=== PATIENT | female | born 1945 | race Hispanic/Latino ===

== ENCOUNTER 2018-12-11 06:50 | Observation (INO) | payer MEDICARE ==
--- NOTE | 2018-12-09 14:11 | Diagnostic Imaging Report ---
EXAMINATION: CHEST 2 VIEWS INDICATION: Pre-operative COMPARISON: None FINDINGS: LINES/TUBES:None LUNGS:The lungs are well-inflated. No focal consolidation or pulmonary edema. PLEURA:No pleural effusion or pneumothorax. MEDIASTINUM:The cardiomediastinal silhouette appears normal in size and shape. BONES/SOFT TISSUES:No acute osseous injury. ABDOMEN:No free air under the diaphragm. IMPRESSION: No focal pneumonia or pulmonary edema. Signed by: Rubén Palacios MD on 12/09/2018 2:08 PM
[2018-12-09 14:18] LABS: BASOPHILS % 0.5 % (0.0-1.0); EOSINOPHILS # (AUTO) 0.2 (0.0-0.4); EOSINOPHILS % 3.5 % (0.0-6.0); HEMATOCRIT 33.6 % (34.2-44.1); HEMOGLOBIN 10.8 g/dL (12.0-16.0); LYMPHOCYTES # (AUTO) 1.7 (1.0-3.2); LYMPHOCYTES % 27.7 % (18.0-39.1); MEAN CORPUSCULAR HEMOGLOBIN 29.7 pg (28-32); MEAN CORPUSCULAR HGB CONC 32.1 g/dL (31-35); MEAN CORPUSCULAR VOLUME 92.3 fL (81-99); MONOCYTES # (AUTO) 0.4 (0.2-0.8); MONOCYTES % 6.4 % (4.4-11.3); NEUTROPHILS # (AUTO) 3.8 (2.1-6.9); NEUTROPHILS % 61.6 % (38.7-80.0); PLATELET COUNT 355 x10e3/uL (140-360); RED BLOOD COUNT 3.64 x10e6/uL (3.6-5.1); RED CELL DISTRIBUTION WIDTH 14.4 % (11.7-14.4)
[2018-12-09 14:32] LABS: INR 0.89; PROTHROMBIN TIME 12.5 seconds (11.9-14.5)
[2018-12-09 14:33] LABS: PARTIAL THROMBOPLASTIN TIME 28.5 seconds (23.8-35.5)
[2018-12-09 14:37] LABS: CALCIUM 9.1 mg/dL (8.4-10.2)
[~2018-12-11] VITALS: Ht 157.5 cm; Wt 71.2 kg
[~2018-12-11 06:50] MED LIST: AMLODIPINE BESYL5 MG PO; DICLOFENAC PO; LOSARTAN POTAS100 MG PO; METFORMIN HCL500 MG PO; MINOCYCLINE HCL50 MG PO; OMEPRAZOLE40 MG PO; PIOGLITAZONE HC45 MG PO
--- OUTSIDE RECORDS SUMMARY | 2018-12-11 07:00 | XMS REPORT ---
[facility] Address Unknown Phone Unavailable Care Team Providers Care Job Counselor Name Role Phone JUAN SELF PP Unavailable JOYCE HESS Unavailable Unavailable Eleazar SELF Unavailable Unavailable Problems This patient has no known problems. Allergies, Adverse Reactions, Alerts This patient has no known allergies or adverse reactions. Medications This patient has no known medications. Encounters Start Date/Time End Date/Time Encounter Type Admission Type Attending Clinicians [facility] Facility Care Department Encounter ID 2017-04-30 15:24:00 2017-04-30 15:24:00 Outpatient [facility] [id number] 2017-04-30 11:53:00 2017-04-30 11:53:00 Outpatient [facility] [id number] Results Test Description Test Time Test Comments Text Results Atomic Results Result Comments CHEST 2 VIEWS 2018-12-09 14:07:00 [place] [id number] Patient Name: CANDI BARRY MR #: [id number] : 1945 Age/Sex: 73/F Req #: [id number] Adm Physician: Ordered by: JOYCE HESS MD Report #: [id number] Location: OR Room/Bed: Procedure: [id number] DX/CHEST 2 VIEWS Exam Date: 10/29/19 Exam Time: 1340 REPORT STATUS: Signed EXAMINATION: CHEST 2 VIEWS INDICATION: Pre-operative COMPARISON: None FINDINGS: LINES/TUBES:None LUNGS:The lungs are well-inflated. No focal consolidation or pulmonary edema. PLEURA:No pleural effusion or pneumothorax. MEDIASTINUM:The cardiomediastinal silhouette appears normal in size and shape. BONES/SOFT TISSUES:No acute osseous injury. ABDOMEN:No free air under the diaphragm. IMPRESSION: No focal pneumonia or pulmonary edema. Signed by: Ivy Lew MD on 12/09/2018 2:08 PM Dictated By: IVY LEW MD 07 Transcribed By: NAOMI Medeiros on 12/09/181407 COPY TO: JOYCE HESS MD US Breast Complete Right 2018-06-30 12:35:44 Patient: CANDI BARRY Date/Time06/30/2018 12:03 CDTReason for [id number] R 16- BILATERAL DIAGNOSTIC MAMMOGRAM WITH CAD- LEFT BREAST ULTRASOUND COMPLETE- RIGHT BREAST ULTRASOUND COMPLETEHISTORY: 73 year-old female who presents for annual exam. History of high risk right breast biopsy 2015.COMPARISON: Multiple mammograms dating as back as 02/09/2014 with most recent prior exam dated 06/20/2017.MAMMOGRAM:CC , ML AND MLO views of both breasts were obtained and interpreted. Right exaggerated CC view.There are scattered areas of fibroglandular density.No evidence of new dominant mass, asymmetry architectural distortion or suspicious microcalcifications is seen.ULTRASOUND:Technique: Complete survey of the left breast with survey of the left axilla obtained. Complete survey of the right breast with survey of the right axilla obtained. Real-time images of breasts performed by the radiologist as well.No evidence of focal mass, cyst or area of disturbed echotexture. Prominent echogenic band of benign parenchymal tissue at the 12-2:00 axis of the left breast. No axillary lymphadenopathy.PHYSICAL EXAM:Palpable ridge of tissue at the left breast 12:00 - 2:00 axis is benign on targeted ultrasound.IMPRESSION:No mammographic or sonographic evidence of malignancy.RECOMMENDATIONS: FOLLOW-UP MAMMOGRAM AND BILATERAL BREAST ULTRASOUND IN ONE YEAR IN THE ABSENCE OF CLINICAL FINDINGS.BI-RADS CATEGORY: 2: Benign Final Dictated by: MD Franz Eniola FDictated DT/TM: 06/30/2018 12:31 pmSigned by: MD Franz Eniola FSigned (Electronic Signature): 06/30/2018 12:35 pm US Breast Complete Left 2018-06-30 12:35:44 Patient: CANDI BARRY Date/Time06/30/2018 12:03 CDTReason for [id number] R 16- BILATERAL DIAGNOSTIC MAMMOGRAM WITH CAD- LEFT BREAST ULTRASOUND COMPLETE- RIGHT BREAST ULTRASOUND COMPLETEHISTORY: 73 year-old female who presents for annual exam. History of high risk right breast biopsy 2014.COMPARISON: Multiple mammograms dating as back as 02/09/2014 with most recent prior exam dated 06/20/2017.MAMMOGRAM:CC , ML AND MLO views of both breasts were obtained and interpreted. Right exaggerated CC view.There are scattered areas of fibroglandular density.No evidence of new dominant mass, asymmetry architectural distortion or suspicious microcalcifications is seen.ULTRASOUND:Technique: Complete survey of the left breast with survey of the left axilla obtained. Complete survey of the right breast with survey of the right axilla obtained. Real-time images of breasts performed by the radiologist as well.No evidence of focal mass, cyst or area of disturbed echotexture. Prominent echogenic band of benign parenchymal tissue at the 12-2:00 axis of the left breast. No axillary lymphadenopathy.PHYSICAL EXAM:Palpable ridge of tissue at the left breast 12:00 - 2:00 axis is benign on targeted ultrasound.IMPRESSION:No mammographic or sonographic evidence of malignancy.RECOMMENDATIONS: FOLLOW-UP MAMMOGRAM AND BILATERAL BREAST ULTRASOUND IN ONE YEAR IN THE ABSENCE OF CLINICAL FINDINGS.BI-RADS CATEGORY: 2: Benign Final Dictated by: MD Franz Eniola FDictated DT/TM: 06/30/2018 12:31 pmSigned by: MD Franz Eniola FSigned (Electronic Signature): 06/30/2018 12:35 pm [facility] Mammo Digital Diagnostic Bilat 2018-06-30 12:35:44 Patient: CANDI BARRY Date/Time06/30/2018 11:18 CDTReason for [id number] R 16- BILATERAL DIAGNOSTIC MAMMOGRAM WITH CAD- LEFT BREAST ULTRASOUND COMPLETE- RIGHT BREAST ULTRASOUND COMPLETEHISTORY: 73 year-old female who presents for annual exam. History of high risk right breast biopsy 2014.COMPARISON: Multiple mammograms dating as back as 02/09/2014 with most recent prior exam dated 06/20/2017.MAMMOGRAM:CC , ML AND MLO views of both breasts were obtained and interpreted. Right exaggerated CC view.There are scattered areas of fibroglandular density.No evidence of new dominant mass, asymmetry architectural distortion or suspicious microcalcifications is seen.ULTRASOUND:Technique: Complete survey of the left breast with survey of the left axilla obtained. Complete survey of the right breast with survey of the right axilla obtained. Real-time images of breasts performed by the radiologist as well.No evidence of focal mass, cyst or area of disturbed echotexture. Prominent echogenic band of benign parenchymal tissue at the 12-2:00 axis of the left breast. No axillary lymphadenopathy.PHYSICAL EXAM:Palpable ridge of tissue at the left breast 12:00 - 2:00 axis is benign on targeted ultrasound.IMPRESSION:No mammographic or sonographic evidence of malignancy.RECOMMENDATIONS: FOLLOW-UP MAMMOGRAM AND BILATERAL BREAST ULTRASOUND IN ONE YEAR IN THE ABSENCE OF CLINICAL FINDINGS.BI-RADS CATEGORY: 2: Benign Final Dictated by: MD Franz Eniola FDictated DT/TM: 06/30/2018 12:31 pmSigned by: MD Franz Eniola FSigned (Electronic Signature): 06/30/2018 12:35 pm [facility] Mammo Digital Diagnostic Bilat 2017-06-20 11:35:11 Patient: CANDI BARRY Date/Time06/20/2017 10:35 CDTReason for [id number] Mammo Digital Diagnostic ShgpnZ76.Dictation Location: [id number] Information: 72-year-old female with history of high risk a right breast biopsy in 2014, presents for annual evaluation.Technique: Bilateral digital mammogram with computer assisted diagnosis. Bilateral CC, MLO and ML views were obtained.Comparison: Prior mammograms dating back to 06/01/2015Findings:The breasts are heterogeneously dense, which may obscure small masses. A scar marker was placed on the upper inner right breast, overlying stable postsurgical changes. There are no suspicious masses or microcalcifications.IMPRESSION:No mammographic evidence of malignancy. However, the breasts are dense, which may obscure small masses and screening bilateral breast ultrasound should be considered.ACR BI-RADS CATEGORY: 2- BENIGNRECOMMENDATION: FOLLOW UP MAMMOGRAM IN ONE YEAR Final Dictated by: MD Wiley, Katy ADictated DT/TM: 06/20/2017 11:29 amSigned by: MD Jama Daisha ASignsandy (Electronic Signature): 06/20/2017 11:35 am Comprehensive Metabolic Panel 2016-10-18 18:25:00 Sodium (test code=NA) 141 mmol/L 135-145 Potassium (test code=K) 4.9 mmol/L 3.5-5.1 Chloride (test code=CL) 102 mmol/L 98-105 Carbon Dioxide (test code=CO2) 29 mmol/L 22-29 Glucose (test code=GLU) 151 mg/dL 70-115 Blood Urea Nitrogen (test code=BUN) 16 mg/dL 8-23 Creatinine (test code=CREAT) 0.7 mg/dL 0.5-0.9 Calcium (test code=CA) 9.5 mg/dL 8.3-10.5 Prot Total (test code=TP) 7.1 g/dL 6.4-8.3 Albumin (test code=ALB) 4.2 g/dL 3.5-5.2 A/G Ratio (test code=AGRATIO) 1.4 Ratio Globulin (test code=GLOB) 2.9 2.9-3.1 Bili Total (test code=TBIL) 0.6 mg/dL 0.1-0.9 Alk Phos (test code=APHOS) 143 U/L 35-104 AST (test code=AST) 16 U/L 1-32 ALT (test code=ALT) 24 U/L 1-33 BUN/Creatinine Ratio (test code=BCRATIO) 22.9 Anion Gap (test code=AGAP) 10 mmol/L 7-16 Estimated GFR (test code=GFR) >60 mL/min/1.73m2 eGFR (estimated Glomerular Filtration Rate) is an estimated value,calculated from the patient's serum creatinine using the MDRD equation.It is NOT the patient's actual GFR. The eGFR provides a more clinicallyuseful measure of kidney disease than serum creatinine alone.This calculation takes sex and race into account, if the informationis provided. If the race is not provided, and the patient isAfrican-Brazilian, multiply by 1.212. If sex is not provided, and thepatient is female, multiply by 0.742. Results for patients <18 years ofage have not been validated by the MDRD study and should be interpretedwith caution.eGFR Result Interpretation:eGFR > or=60 is in the Normal RangeeGFR < 60 may mean kidney diseaseeGFR < 15 may mean kidney failureRanges recommended by the National Kidney Foundat ion,http://nkdep.nih.gov
[2018-12-11] MEDS ORDERED: LIDOCAINE HCL (LTA) 4 ML SOLN ONE (07:09)
[2018-12-11] MEDS ORDERED: ACETAMINOPHEN 1000 MG/100 ML 100 ML IV ONE (07:09)
[2018-12-11] MEDS ORDERED: IBUPROFEN 800MG/ 250ML 250 ML IV ONE (07:09)
[2018-12-11] MEDS ORDERED: BACITRACIN 50,000 UNIT VIAL ONE (07:37)
[2018-12-11] MEDS ORDERED: THROMBIN FOR SOLN 5,000 UNIT VIAL ONE (07:37)
[2018-12-11] MEDS ORDERED: BUPIVACAINE 0.5%/EPI 30 ML SDV INJ ONE (07:37)
[2018-12-11] MEDS ORDERED: CEFAZOLIN SOD 1 GM/NS 50ML 100 ML IV ONE (07:58)
[2018-12-11] MEDS ORDERED: ZOLPIDEM TARTRATE 5 MG TAB PO PRN (10:45)
[2018-12-11] MEDS ORDERED: MAGNESIUM/ALUMINUM/SIMETHICONE 30 ML UDC PO PRN (10:45)
[2018-12-11] MEDS ORDERED: PROMETHAZINE HCL (IM) 25 MG/ML VIAL IM PRN (10:45)
[2018-12-11] MEDS ORDERED: OXYCODONE/ACETAMINOPHEN 5-325 1 EACH TABLET PO PRN (10:45)
[2018-12-11] MEDS ORDERED: MORPHINE SULFATE 5 MG/ML VIAL IM PRN (10:45)
[2018-12-11] MEDS ORDERED: HYDROMORPHONE 2MG/ML 2 MG/ML ML IV PRN (10:45)
[2018-12-11] MEDS ORDERED: ACETAMINOPHEN 325 MG TAB PO PRN (10:45)
[2018-12-11] MEDS ORDERED: CEPACOL SORE THROAT LOZENGES PO PRN (10:45)
[2018-12-11] MEDS ORDERED: CARISOPRODOL 350 MG TAB PO PRN (10:45)
[2018-12-11 11:45] VITALS: BP 128/69
--- NOTE | 2018-12-11 12:00 | NUR ---
Received patient from [facility], s/p L4/L5 laminectomy, PMH significant for HTN, DM, HLD, c/o pains to incision site, medicated as per orders. VSS, afebrile, no deficits, no c/o N/V, no chills, a/ox3, able to make needs known, OOB to bathroom with assistance, call light within reach, will monitor.
[2018-12-11 12:04] VITALS: BP 128/69
[2018-12-11] MEDS: LACTATED RINGER'S 1,000 ML IV SCH ×2 (12:32→22:02)
[2018-12-11] MEDS: ONDANSETRON HCL INJ 2MG/ML 2ML 2 MG/ML VIAL IV PRN ×3 (12:33→22:54)
[2018-12-11] MEDS: CEFAZOLIN SOD 1 GM/NS 50ML 50 ML IV SCH ×2 (14:00→20:56)
[2018-12-11 16:46] VITALS: BP 141/63
--- NOTE | 2018-12-11 16:48 | Operative Report ---
DATE OF PROCEDURE: 12/11/2018 SURGEON: José Miller MD PREOPERATIVE DIAGNOSIS: L4-L5 spinal stenosis with neurogenic claudication, M48.062. POSTOPERATIVE DIAGNOSIS: L4-L5 spinal stenosis with neurogenic claudication, M48.062. PROCEDURES: 1. L4 bilateral decompressive laminectomy and L4-L5 bilateral medial facetectomies, 41229. 2. L5 bilateral partial decompressive laminectomy, 19146. ANESTHESIA: General. INDICATIONS: The patient is a 73-year-old woman, who presents with severe small L4-L5 spinal stenosis and was taken to the operating room for bilateral decompressive laminectomy. PROCEDURE IN DETAIL: After induction of general anesthesia, the patient was placed on the operating table in prone position over Sidney frame. Lumbar region was prepped and draped in sterile fashion. A preoperative x-ray was obtained. A small midline incision was created over the lumbar region. The lumbar fascia was opened along the midline and a subperiosteal dissection was carried out to expose the underlying laminae and x-ray was obtained with a probe under the L5 lamina. One segment was counted above the segments to locate the L4-L5 segment. The portions of the spinous processes of L4 and L5 were resected. The medial aspects of the facet joints were exposed. Retraction was maintained with expandable Aesculap speculum retractor. The operating microscope was brought in. A high-speed drill equipped with a 5 mm venkat bur was used to drill the inferior aspect of lamina of L4 and the superior aspect of the lamina of L5 and the medial aspect of the L4-L5 facet joints bilaterally. The markedly hypertrophic ligamentum flavum was resected. The dural sac and the L5 traversing nerve roots were fully exposed and decompressed. Meticulous hemostasis was secured. The underlying disk was examined and found to be to just have a mild chronic disk bulge without any significant compression of the dural sac or the nerve roots. The diskectomy was not performed. The wound was copiously irrigated with bacitracin solution. Meticulous hemostasis was secured. The retractor was removed. The dura was covered with a smaller Gel-Foam. The lumbar fascia was closed with 0 Vicryl sutures. Subcutaneous layer was closed with 2-0 Vicryl sutures. The skin was closed with 3-0 Monocryl sutures in subcuticular fashion. Steri-Strips and dressing were applied. The patient was awakened, extubated, and taken to postanesthesia care unit in stable condition. No intraoperative complications were encountered. Estimated blood loss was 20 mL. José Miller MD PP/LINDA /[id number]
[2018-12-11] MEDS ORDERED: SEVOFLURANE INHAL SOLN 250 ML PEN BTL ONE (18:51)
[2018-12-11] MEDS ORDERED: MIDAZOLAM HCL 2 MG/2 ML VIAL ONE (18:51)
[2018-12-11] MEDS ORDERED: PROPOFOL IV EMULSION 10 MG/ML 20 ML VIAL ONE (18:51)
[2018-12-11] MEDS ORDERED: FENTANYL CITRATE/PF 100MCG/2 ML INJ ONE (18:51)
[2018-12-11] MEDS ORDERED: DEXAMETHASONE SOD PHOS INJ 4 MG/ML VIAL ONE (18:51)
[2018-12-11] MEDS ORDERED: LIDOCAINE HCL 2% JELLY 5 ML TUBE ONE (18:51)
[2018-12-11] MEDS ORDERED: ONDANSETRON HCL INJ 2MG/ML 2ML 2 MG/ML VIAL ONE (18:51)
[2018-12-11] MEDS ORDERED: LIDOCAINE HCL 2% LOCAL INJ 5 ML SDV VIAL INJ ONE (18:51)
--- NOTE | 2018-12-11 18:59 | NUR ---
Patient a/ox3, OOB to bathroom with assistance, pains well managed, voiding, c/o nausea and medicated with zofran, call light within reach, will monitor.
--- NOTE | 2018-12-11 19:00 | NUR ---
RECEIVED PATIENT IN BEDSIDE SHIFT REPORT. PATIENT RESTING IN BED AT THIS TIME. PAIN MANAGEABLE. 04/20. NO S&S OF DISTRESS NOTED. BEATRIZ HOSE ON AND SCDS ACTIVE. BED LOCKED IN LOWEST POSITION, SIDE RAILS UPX2, CALL LIGHT IN REACH.
[2018-12-11 20:00] VITALS: BP 159/82
[2018-12-11 22:37] VITALS: BP 159/82
[2018-12-12] VITALS: BP 139/76
[2018-12-12] MEDS: OXYCODONE/ACETAMINOPHEN 5-325 1 EACH TABLET PO PRN ×2 (00:30→06:10)
[2018-12-12 04:00] VITALS: BP 135/66
[2018-12-12] MEDS: CEFAZOLIN SOD 1 GM/NS 50ML 50 ML IV SCH (06:33)
--- NOTE | 2018-12-12 06:50 | NUR ---
Received patient lying in bed with eyes open. Respiration even and unlabored without SOB. Call light in reach.
[2018-12-12 07:55] VITALS: BP 130/66
[2018-12-12] MEDS ORDERED: METFORMIN HCL 500 MG TAB PO SCH (09:00)
[2018-12-12] MEDS ORDERED: LOSARTAN POTASSIUM 100 MG TAB PO SCH (09:00)
[2018-12-12] MEDS ORDERED: PIOGLITAZONE HCL 15 MG TAB PO SCH (09:00)
[2018-12-12] MEDS ORDERED: AMLODIPINE BESYLATE 5 MG TAB PO SCH (09:00)
[2018-12-12] MEDS ORDERED: PIOGLITAZONE HCL 45 MG TAB PO SCH (09:00)
[2018-12-12] MEDS ORDERED: MINOCYCLINE HCL 50 MG CAP PO SCH (09:00)
[2018-12-12] MEDS ORDERED: PANTOPRAZOLE SOD 40 MG TABEC PO SCH (09:00)
[2018-12-12 09:23] VITALS: BP 130/66
[2018-12-12] MEDS ORDERED: NORCO 7.5-3251 EACH PO (09:42)
--- NOTE | 2018-12-12 10:02 | NUR ---
Discontinue IV to left AC, catheter tip intact, no bleeding noted.
--- NOTE | 2018-12-12 10:37 | NUR ---
Patient is to D/C to home as ordered. Transported via wheelchair to private vehicle. All personal belongings are with the family member.
== END 2018-12-12 10:37 | disposition home or self-care (01) ==
LOC: OR 06:50 → PACU V 10:41 → MED/SURG 11:31
PROVIDERS: ADMIT Neurological Surgery; ATTEND Neurological Surgery
DX: M48.062 Spinal stenosis, lumbar region with neurogenic claudication (principal); I10 Essential (primary) hypertension; E78.5 Hyperlipidemia, unspecified; G89.29 Other chronic pain; E11.9 Type 2 diabetes mellitus without complications
CPT/HCPCS: 36415 ×3; 63047; 63048; 71046; 72020; 80048; 82948 ×2; 85025; 85610; 85730; 86850; 86900; 88304; 88311; 93005; 97116 ×2; 97161; G0378 ×2; J0131; J0690 ×2; J1100; J1170; J2001 ×2; J2250; J2405; J2704; J3010; J7121; S0164

== ENCOUNTER 2019-06-13 12:44 | Emergency (ER) | payer MEDICARE, OTHER ==
[~2019-06-13] VITALS: Ht 157.5 cm; Wt 71.2 kg
[~2019-06-13 12:44] MED LIST changes: +NORCO 7.5-3251 EACH PO
[2019-06-13 13:46] LABS: STREPTOCOCCUS GRP A ANTIGEN NEGATIVE (NEGATIVE)
[2019-06-13 13:54] LABS: INFLUENZAE A&B ANTIGEN (RAPID) NEGATIVE (NEGATIVE)
--- NOTE | 2019-06-13 14:38 | Diagnostic Imaging Report ---
Examination: Single AP view of the chest. COMPARISON: Chest 2 views 12/09/2018 INDICATION: Fever IMPRESSION: 1. Lines and Tubes: None 2. Lungs are well-inflated. Linear opacity in the left mid lung may represent subsegmental atelectasis or scarring. The lungs are otherwise clear. No consolidation or effusion. 3. Cardiomediastinal silhouette is normal. Pulmonary vasculature is normal. 4. No acute bony abnormalities. Signed by: Dr. Claude Dominguez M.D. on 06/13/2019 2:34 PM
--- NOTE | 2019-06-13 15:57 | Diagnostic Imaging Report ---
Examination: Single AP view of the chest. COMPARISON: Chest 2 views 12/09/2018 INDICATION: Fever IMPRESSION: 1. Lines and Tubes: None 2. Lungs are grossly clear. No consolidation or effusion. 3. Cardiomediastinal silhouette is normal. Pulmonary vasculature is normal. 4. No acute bony abnormalities. Signed by: Dr. Claude Dominguez M.D. on 06/13/2019 3:54 PM
== END 2019-06-13 16:06 | disposition home or self-care (01) ==
LOC: ER 12:44
DX: R50.9 Fever, unspecified (principal); R05 Cough; J06.9 Acute upper respiratory infection, unspecified
CPT/HCPCS: 71045; 83518; 87070; 87400; 99282

== ENCOUNTER 2021-03-06 03:41 | Emergency (ER) | payer MEDICARE, OTHER ==
[~2021-03-06] VITALS: Ht 157.5 cm; Wt 69.4 kg
[2021-03-06] MEDS ORDERED: AUGMENTIN 875-1 EACH PO (03:57)
[2021-03-06] MEDS ORDERED: IBUPROFEN600 MG PO (03:57)
[2021-03-06] MEDS ORDERED: AMOXICILLIN/CLAVULANATE K 875 MG TAB PO STA (03:58)
[2021-03-06] MEDS ORDERED: KETOROLAC TROMETHAMINE 60 MG/2 ML VIAL IM ONE (04:00)
[2021-03-06] MEDS ORDERED: AMOXICILLIN/CLAVULANATE K 875 MG TAB ONE (04:05)
[2021-03-06] MEDS ORDERED: KETOROLAC TROMETHAMINE 30 MG/ML VIAL ONE (04:05)
== END 2021-03-06 04:34 | disposition home or self-care (01) ==
LOC: ER 03:47
DX: U07.1 COVID-19 (principal); R05.9 Cough, unspecified; R51.9 Headache, unspecified; K02.9 Dental caries, unspecified; I10 Essential (primary) hypertension; E11.9 Type 2 diabetes mellitus without complications; E78.5 Hyperlipidemia, unspecified
CPT/HCPCS: 99283; J1885